=== PATIENT | male | born 1995 | race Caucasian/White ===

== ENCOUNTER 2018-10-12 20:58 | Emergency (ER) | payer BC, OTHER ==
[~2018-10-12] VITALS: Ht 180.3 cm; Wt 126.0 kg
[2018-10-12 21:02] VITALS: BP 118/82
== END 2018-10-12 23:14 | disposition home or self-care (01) ==
LOC: ED 22:57
DX: J02.8 Acute pharyngitis due to other specified organisms (principal); B97.89 Other viral agents as the cause of diseases classified elsewhere; H92.03 Otalgia, bilateral
CPT/HCPCS: 81003; 87081; 87147; 87880; 99283